=== PATIENT | female | born 1965 | race Caucasian/White ===

== ENCOUNTER 2020-01-27 09:45 | Outpatient (CLI) | payer OTHER, SELFPAY ==
--- NOTE | 2020-01-27 09:48 | MM_ITS ---
WS: [id number] BILATERAL DIGITAL SCREENING MAMMOGRAPHY WITH CAD CLINICAL INFORMATION: SCREENING HISTORY: Screening mammogram. No current complaints. COMPARISON: December 24, 2018 TECHNIQUE: Bilateral CC and MLO views. FINDINGS: The breasts are composed of heterogeneous fibroglandular density tissue, which can limit the detectio n of small underlying mass lesions. No suspicious mass, asymmetry, calcifications, or architectural d istortion. No evidence of malignancy. MM/[place] [id number] IMPRESSION: BI-RADS: 1-Negative FOLLOW UP: 1 Year Follow-up Recommend return to annual screening mammography.
== END 2020-01-27 09:46 | disposition home or self-care (01) ==
LOC: RADSHAW 09:47
PROVIDERS: Family Provider Nurse Practitioner Family; PCP Nurse Practitioner Family; Visit Provider Nurse Practitioner Family
DX: Z12.31 Encounter for screening mammogram for malignant neoplasm of breast (principal)
CPT/HCPCS: 77067

== ENCOUNTER 2020-10-09 10:14 | Emergency (ER) | payer OTHER, SELFPAY ==
[2020-10-09 10:16] VITALS: BP 206/107; PULSE 68; RESP 16; TEMP 36.6; O2SAT 97; BMI 26.6
--- NOTE | 2020-10-09 10:27 | ECG_ITS ---
[facility] Test Date: 2020-10-09 Pat Name: Shoshana Multani Department: Room: Gender: Female Rn Case Manager: : 1965 Requested By: Yung Moise Order Number: [id number] Toro MD: DAWSON CONTRERAS Measurements Intervals [place] Rate: 54 P: 47 IA: 206 QRS: 41 QRSD: 96 T: 41 QT: 468 QTc: 444 Interpretive Statements SINUS BRADYCARDIA Compared to ECG 03/11/2018 10:22:17 Sinus rhythm no longer present Electronically Signed On 10-09-2020 18:02:43 LINEN GRADER by DAWSON CONTRERAS [email or web address]
--- NOTE | 2020-10-09 10:27 | XRR_ITS ---
PROCEDURE INFORMATION: Exam: XR Chest, 1 View Exam date and time: 10/09/2020 10:30 AM Age: 55 years old Clinical indication: Other: High blood pressure; Additional info: HTN TECHNIQUE: Imaging protocol: XR of the chest Views: 1 view. COMPARISON: CR Chest 1 [place] [id number] 12/14/2015 7:04 PM FINDINGS: Lungs: Unremarkable. No consolidation. Pleural space: Unremarkable. No pleural effusion. No pneumothorax. Heart/Mediastinum: Unremarkable. No cardiomegaly. Bones/joints: Unremarkable. XR/XR chest 1V portable [id number] IMPRESSION: No acute findings.
--- NOTE | 2020-10-09 10:29 | ED_ITS ---
HPI - General Adult General: Chief complaint: General Medical Stated complaint: High Bp Time Seen by Provider: 10/09/20 10:19 History of Present Illness: HPI narrative: Patient complains of increasing hypertension over the last week or 2. Patient has a history of hypertension for years. Recently had bariatric surgery done [place] back in July and blood pressure has been doing pretty good until recently. Patient denies any chest pressure shortness of breath chest pains or other related illnesses. Says clonidine does not seem to be working as well for her blood pressure on a as needed basis and she has tried her olmesartan twice a day without much success either. MD complaint: Hypertension Onset (ago): week(s) Associated symptoms: Reports no associated symptoms; Deny chest pain, dyspnea, headache(s), nausea, rash or vomiting Review of Systems Const: Denies: fever(s), chills or body aches Eyes: Denies: change in vision or blurry vision ENMT: Denies: throat pain or nasal congestion Card: Reports: other (Elevated blood pressure); Denies: chest pain or dyspnea on exertion Resp: Denies: dyspnea, productive cough or non-productive cough GI: Denies: abdominal pain, nausea or vomiting Musc: Denies: extremity pain Skin/Breast: Denies: rash Neuro: Denies: headache(s) Psych: Denies: anxiety or depression Kd/Lymph: Denies: easy bruising PFSH ED PFSH: Social History (Updated 01/24/20 @ 13:57 by Francheska Garcia LPN) Smoking and tobacco status: never smoked Physical Exam Const: COMMON NORMALS: no acute distress, average body habitus and patient oriented x3 HENMT: COMMON NORMALS: normocephalic HEAD & SCALP: normal to inspection and normocephalic FACE & SINUS: normal facial exam Eye: COMMON NORMALS: conjunctivae normal GENERAL EYE: appearance normal, both eyes and all related structures CONJUNCTIVA: Yes conjunctivae normal Neck/C-Spine: COMMON NORMALS: no JVD Chest: COMMONS NORMALS: normal inspection of the chest Resp: COMMON NORMALS: normal respiratory effort and clear to auscultation bilaterally AUSCULTATION: clear to auscultation bilaterally Cardio: COMMON NORMALS: no JVD, regular rate and regular rhythm RATE: regular rate RHYTHM: regular rhythm GI: COMMON NORMALS: Normal to inspection, nondistended, normoactive bowel sounds present Extremity: COMMON NORMALS: normal to inspection and full ROM Neuro: COMMON NORMALS: patient oriented x3 Course Vital Signs: Vital signs: Vital Signs Temperature 97.9 F 10/09/20 10:16 Pulse Rate 56 L 10/09/20 12:05 Respiratory Rate 14 10/09/20 12:05 Blood Pressure 124/73 10/09/20 12:05 Pulse Oximetry 97 10/09/20 12:05 [facility] - General Adult Lab Data: Labs: Lab Results 10/09/20 10/09/20 10/09/20 Range/Units 10:40 10:40 10:55 WBC 5.4 (4.0-10.0) 10^3/ uL RBC 4.63 (4.1-5.3) 10^6/u L Hgb 13.4 (11.5-15.3) g/dL Hct 41.9 (37.0-47.0) % MCV 90.5 (81-99) fL MCH 28.9 (28.0-34.0) pg MCHC 32.0 (30.0-36.0) g/dL RDW 13.3 (12.1-15.1) % Plt Count 344 (130-400) 10^3/c mm MPV 10.2 (7.4-10.4) fL Neut % (Auto) 59.4 % Lymph % (Auto) 28.6 % Mora % (Auto) 7.3 % Eos % (Auto) 3.9 % Baso % (Auto) 0.6 % Neut # (Auto) 3.18 (1.8-7.7) 10^3/u L Lymph # (Auto) 1.5 (0.8-4.8) 10^3/u L Mora # (Auto) 0.4 (0.2-0.9) 10^3/u L Eos # (Auto) 0.2 (0.0-0.8) 10^3/u L Baso # (Auto) 0.0 (0.0-0.1) 10^3/u L Nucleated RBC % (a uto) 0 % Nucleated RBCs # 0.0 /100WBC Sodium 142 (136-145) mmol/L Potassium 3.9 (3.5-5.1) mmol/L Chloride 106 (98-107) mmol/L Carbon Dioxide 25 (22-29) mmol/L Anion Gap 14.9 (5-19) BUN 11 (6-20) mg/dL Creatinine 0.8 (0.5-0.9) mg/dL GFR Calculation 74.2 L (90-130) mL/min Glucose 122 H (65-115) mg/dL Calculated Osmolal ity 295 (285-295) mOsm/k g Calcium 9.5 (8.5-10.5) mg/dL Total Bilirubin 0.3 (0.15-1.2) mg/dL AST 19 (0-32) U/L ALT 19 (0-33) U/L Alkaline Phosphata se 106 H (35-105) IU/L Total Protein 7.7 (6.6-8.7) g/dL Albumin 4.3 (3.5-5.2) g/dL Globulin 3.4 (1.3-4.6) g/dL Urine Color Yellow (Yellow) Urine Appearance Hazy A (CLEAR) Urine pH 5 (5-7) Ur Specific Gravit y 1.020 (1.005-1.030) Urine Protein Neg (Negative) Urine Glucose (UA) Norm (Normal) Urine Ketones Negative (Negative) Urine Blood Neg (Negative) Urine Nitrate Positive H (Negative) Urine Bilirubin 1+ H (Negative) Urine Urobilinogen 1 H (Negative) mg/dL Ur Leukocyte Caren ase Trace H (Negative) Urine RBC None (0-2) /hpf Urine WBC 25-40 H (0-5) /hpf Ur Squamous Epith Cells None (0-5) /hpf Ur Transition Epit h Cell 0-4 /hpf Amorphous Sediment Not Reportable Urine Bacteria 4+ H (NONE) /hpf Discharge Plan Discharge Patient Disposition: Home Clinical Impression: Hypertension Qualifiers: Hypertension type: essential hypertension Qualified Code(s): I10 - Essential (primary) hypertension UTI (urinary tract infection) Qualifiers: Urinary tract infection type: acute cystitis Hematuria presence: without hematuria Qualified Code(s): N30.00 - Acute cystitis without hematuria Condition: Stable Prescriptions: New Toprol XL 100 mg tablet extended release 24 hr 100 mg PO DAILY Qty: 14 RF: 0 Bactrim DS 800-160 mg tablet 1 tab PO BID 7 Days Qty: 14 RF: 0 Discontinued metoprolol succinate 25 mg tablet extended release 24 hr 12.5 mg PO BID RF: 0 No Action aspirin [Adult Aspirin Regimen] 81 mg tablet,delayed release (DR/EC) 81 mg PO DAILY RF: 0 clonidine HCl 0.1 mg tablet 0.1 mg PO DAILY PRNRF: 0 olmesartan 40 mg tablet 40 mg PO DAILY RF: 0 triamterene-hydrochlorothiazid 37.5-25 mg tablet 1 tab PO BID PRNRF: 0 citalopram 20 mg tablet 20 mg PO DAILY RF: 0 levothyroxine 150 mcg capsule 150 mcg PO .QOD RF: 0 levothyroxine 175 mcg capsule 175 mcg PO .QOD RF: 0 Discharge Orders: Discharge Order (Routine); Ordered 10/09/20 Ordered By: Yung Moise Referrals: Roseanne Vega APN [Primary Care Provider] - Discharge Diet: Usual diet Discharge Activity: Resume usual activity Patient Instructions: Urinary Tract Infection in Women (ED), Chronic Hypertension (ED) Activity Restrictions/Additional Instructions: Follow-up with medical provider as directed. Take medications as prescribed. Return to the ER or your medical provider if condition worsens. Please read and understand discharge instructions. If any questions ask please. Take Toprol-XL once a day check blood pressure twice a day Coding Level of Care Code ED [employer] Operator for Sarkis Fwtamia Exam Comprehensive
[2020-10-09 10:33] VITALS: BP 177/102
[2020-10-09] MEDS: amlodipine 10 mg Tablet PO (10:33)
[2020-10-09] MEDS: cloNIDine 0.1 mg Tablet 0.3 MG PO (10:33)
[2020-10-09 10:51] LABS: Basophils % 0.6 %; Eosinophils # 0.2 10^3/uL (0.0-0.8); Eosinophils % 3.9 %; Hematocrit 41.9 % (37.0-47.0); Hemoglobin 13.4 g/dL (11.5-15.3); Lymphocytes # 1.5 10^3/uL (0.8-4.8); Lymphocytes % 28.6 %; Mean Corpuscular Hemoglobin 28.9 pg (28.0-34.0); Mean Corpuscular Volume 90.5 fL (81-99); Mean Platelet Volume 10.2 fL (7.4-10.4); Monocytes # 0.4 10^3/uL (0.2-0.9); Monocytes % 7.3 %; Neutrophils # 3.18 10^3/uL (1.8-7.7); Neutrophils % 59.4 %; Nucleated Red Blood Cells % 0 %; Platelet Count 344 10^3/cmm (130-400); Red Blood Count 4.63 10^6/uL (4.1-5.3); Red Cell Distribution Width 13.3 % (12.1-15.1); White Blood Count 5.4 10^3/uL (4.0-10.0)
[2020-10-09 11:13] LABS: Alanine Aminotransferase 19 U/L (0-33); Albumin Level 4.3 g/dL (3.5-5.2); Alkaline Phosphatase 106 IU/L (35-105); Anion Gap 14.9 (5-19); Aspartate Amino Transferase 19 U/L (0-32); Blood Urea Nitrogen 11 mg/dL (6-20); Calcium 9.5 mg/dL (8.5-10.5); Carbon Dioxide 25 mmol/L (22-29); Chloride 106 mmol/L (98-107); Globulin 3.4 g/dL (1.3-4.6); Glomerular Filtration Rate 74.2 mL/min (90-130); Glucose 122 mg/dL (65-115); Osmolality Calculated 295 mOsm/kg (285-295); Potassium 3.9 mmol/L (3.5-5.1); Sodium 142 mmol/L (136-145); Total Bilirubin 0.3 mg/dL (0.15-1.2); Total Protein 7.7 g/dL (6.6-8.7)
[2020-10-09 11:44] LABS: Glucose Urine UA Norm (Normal); Protein Urine Neg (Negative); Urine Appearance Hazy (CLEAR); Urine Color Yellow (Yellow); pH Urine 5 (5-7)
[2020-10-09 11:45] LABS: Add Urine Culture? Yes; Add Urine Microscopic? YES; Bacteria Urine 4+ /hpf; Bilirubin Urine 1+ (Negative); Blood Urine Neg (Negative); Ketones Urine Negative (Negative); Leukocyte Esterase Urine Trace (Negative); Nitrate Urine Positive (Negative); Transitional Epi Cells Urine 0-4 /hpf; Urobilinogen Urine 1 mg/dL (Negative); WBC Urine 25-40 /hpf (0-5)
[2020-10-09 12:05] VITALS: BP 124/73; PULSE 56; RESP 14; O2SAT 97
== END 2020-10-09 12:05 | disposition home or self-care (01) ==
PROVIDERS: Emergency Provider Nurse Practitioner Family; PCP Nurse Practitioner Family
DX: I10 Essential (primary) hypertension (principal); N30.00 Acute cystitis without hematuria; Z79.82 Long term (current) use of aspirin
CPT/HCPCS: 12345; 71045; 80053; 81001; 85025; 87077; 87086; 87186; 93005; 99282; 99283

== ENCOUNTER 2020-10-12 08:46 | Emergency (ER) | payer OTHER, SELFPAY ==
[2020-10-12 08:47] VITALS: BP 159/90; PULSE 68; RESP 18; TEMP 35.9; O2SAT 96; BMI 26.6
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
[2020-10-12 09:06] VITALS: BP 154/93; PULSE 69; PULSE 73; RESP 18; O2SAT 97
[2020-10-12] MEDS: HYDROcodone-acetaminophen 5-325 mg Tablet 2 TAB PO (09:15)
--- NOTE | 2020-10-12 10:59 | DCPLANNER ---
medical territory manager was asked to schedule a follow up appointment for patient with [facility]. medical territory manager called [facility], spoke with Carley, gave clinic patients information. A follow up appointment was scheduled for Sunday, October 18, 2020 at 8:[address] Patton. medical territory manager gave patient appointment information. medical territory manager was also asked to schedule a follow up appointment with ortho. medical territory manager called the ortho clinic, spoke with Holly, gave the clinic patients information. medical territory manager was told that patients information would be printed and reviewed. Clinic will call patient with appointment information.
[2020-10-12 11:25] VITALS: BP 161/91; PULSE 47; RESP 18; TEMP 37.2; O2SAT 96
--- NOTE | 2020-10-13 09:24 | DCPLANNER ---
Patient has a follow up appointment scheduled for October at 2:[address] Pinto. Clinic will call patient with appointment information.
--- NOTE | 2020-11-12 12:55 | DCPLANNER ---
Patient had a follow up appointment scheduled for 10.18.20 with [facility] - patient did attend appointment Patient had a follow up appointment scheduled for 10.14.20 with ortho - patient did attend appointment
== END 2020-10-12 11:28 | disposition home or self-care (01) ==
PROVIDERS: Emergency Provider Nurse Practitioner Family; PCP Nurse Practitioner Family
DX: S92.422A Displaced fracture of distal phalanx of left great toe, initial encounter for closed fracture (principal); I10 Essential (primary) hypertension; Z79.82 Long term (current) use of aspirin; V99.XXXA Unspecified transport accident, initial encounter
CPT/HCPCS: 12345; 73600; 73620; 99281; 99283; E0114

== ENCOUNTER 2020-10-14 15:34 | Outpatient (CLI) | payer OTHER, SELFPAY | END 2020-10-14 15:35 | disposition home or self-care (01) | LOC: SPT 15:35 | PROVIDERS: PCP Nurse Practitioner Family; Visit Provider Orthopaedic Surgery | DX: Z46.89 Encounter for fitting and adjustment of other specified devices (principal); S82.309D Unspecified fracture of lower end of unspecified tibia, subsequent encounter for closed fracture with routine healing; S82.839D Other fracture of upper and lower end of unspecified fibula, subsequent encounter for closed fracture with routine healing; X58.XXXD Exposure to other specified factors, subsequent encounter | CPT/HCPCS: 97760; L4361 ==

== ENCOUNTER → 2020-11-02 11:47 | Outpatient (BNVA) | payer OTHER, SELFPAY | PROVIDERS: PCP Nurse Practitioner Family; Visit Provider Orthopaedic Surgery | DX: S82.309A Unspecified fracture of lower end of unspecified tibia, initial encounter for closed fracture (principal); S82.839A Other fracture of upper and lower end of unspecified fibula, initial encounter for closed fracture; S99.929A Unspecified injury of unspecified foot, initial encounter; S82.52XD Displaced fracture of medial malleolus of left tibia, subsequent encounter for closed fracture with routine healing | CPT/HCPCS: 73610 ==

== ENCOUNTER 2020-11-11 07:26 | Outpatient (CLI) | payer OTHER, SELFPAY ==
--- NOTE | 2020-11-11 08:00 | USCV_ITS ---
Shoshana Multani Age: 55 Gender: F : 1965 Exam Date: 11/11/2020 08:32 Ordering Phys: Angela Patton MD ([email or web address]) Technologist: Main Mccartney Exam Location: [facility] Indication: HYPERTENSION Aortic Velocity @ SMA (cm/s) 41.5 RIGHT KIDNEY LEFT KIDNEY Velocity (cm/s) Velocity (cm/s) Sys/Caldwell Sys/Caldwell Resistive Index Resistive Index 20.4 / 6.2 0.70 Proximal Renal Artery 61.1 / 13.6 0.78 20.3 / 5.7 0.72 Mid Renal Artery 53.3 / 14.5 0.73 31.4 / 9.7 0.69 Distal Renal Artery 57.3 / 14.0 0.76 50.7 / 18.8 0.63 Hilar 37.2 / 14.7 0.60 21.6 / 9.2 0.57 Upper Pole 12.1 / 5.5 0.55 26.4 / 8.4 0.68 Mid Pole 22.6 / 8.6 0.62 17.9 / 6.3 0.65 Lower Pole 24.2 / 9.4 0.61 0.80 Renal Aortic Ratio 1.47 Accleration Index (cm/sec2) 1191.0 Hilar 424.00 0 328.00 Upper Pole 149.00 282.00 Mid Pole 331.00 242.00 Lower Pole 349.00 114.2 Kidney Length (mm) 111.0 CONCLUSIONS Normal color flow Doppler, peak systolic velocities, Renal/Aortic peak systolic velocity ratio and resistive indices noted in bilateral main, segmental and interlobar renal arteries. George Wheeler MD (Electronically Signed) Final Date: 11 November 2020 18:18 S
--- NOTE | 2020-11-11 09:30 | USCV_ITS ---
Shoshana Multani Age: 55 Gender: F : 1965 Exam Date: 11/11/2020 07:46 Ordering Phys: Angela Patton MD ([email or web address]) Technologist: Maris Larios [place] [facility] [place]: HTN BP: 157 / 99 HR: 51 Rhythm: Sinus Technical Quality: Adequate MEASUREMENTS (Male / Female) Normal Values 2D ECHO LV Diastolic Diameter PLAX 3.8 cm 4.2 - 5.9 / 3.9 - 5.3 cm LV Systolic Diameter PLAX 2.1 cm LV Chamber Size 3.3 cm IVS Diastolic Thickness 1.3 cm 0.6 - 1.0 / 0.6 - 0.9 cm IVS Systolic Thickness 1.9 cm LVPW Diastolic Thickness 1.1 cm 0.6 - 1.0 / 0.6 - 0.9 cm LVPW Systolic Thickness 1.9 cm RV Chamber Size 3.4 cm LVOT Diameter 1.9 cm LV Ejection Fraction 2D Teich 76.1 % LV Ejection Fraction MOD 2C 76.0 % LV Ejection Fraction 2C AL 74.1 % LA Diameter 3.6 cm LA Width 2.8 cm LA Height 4.9 cm RA Width 3.3 cm RA Height 4.6 cm Aorta at Sinotubular Diameter 2.1 cm M-MODE LV Diastolic Diameter MM 3.9 cm 4.2 - 5.9 / 3.9 - 5.3 cm LV Systolic Diameter MM 2.2 cm LV Ejection Fraction MM Teich 75.3 % IVS Diastolic Thickness MM 2.3 cm 0.6 - 1.0 / 0.6 - 0.9 cm IVS Systolic Thickness MM 1.9 cm LVPW Diastolic Thickness MM 1.5 cm 0.6 - 1.0 / 0.6 - 0.9 cm LVPW Systolic Thickness MM 1.9 cm Aortic Annulus Diameter 2.7 cm LA Ao Ratio MM 1.4 MV E Point Septal Separation 0.2 cm DOPPLER AV Peak Velocity 160.0 cm/s LVOT Peak Velocity 111.0 cm/s AV Area Cont Eq vti 2.0 cm squared AV Area Cont Eq pk 2.0 cm squared MV Area PHT 3.3 cm squared Mitral E to A Ratio 1.0 MV E' Velocity 54.0 cm/s Mitral E to MV E' Ratio 7.0 Mitral E to LV E' Lateral Ratio 7.3 Mitral E to LV E' Septal Ratio 6.7 TR Peak Velocity 140.1 cm/s TR Peak Gradient 7.9 mmHg TR Mean Velocity 102.8 cm/s TR Mean Gradient 4.9 mmHg TR Velocity Time Integral 41.6 cm TV Peak E Velocity 63.0 cm/s Right Atrial Pressure 3.0 mmHg Pulmonary Artery Systolic Pressu 10.9 mmHg PV Peak Velocity 101.0 cm/s RV Acceleration Time 0.1 s RV Ejection Time 0.4 s RV AcT/ET 0.3 FINDINGS Left Ventricle Normal left ventricular size, systolic function and upper normal wall thickness, with no regional wall motion abnormalities. Left ventricular ejection fraction is estimated at 70 %. Normal diastolic function. Right Ventricle Normal right ventricular size and systolic function. Right ventricular systolic pressure 10.9 mmHg. Right Atrium Normal right atrial size. Inter-atrial septal deviation from left to right. No ASD or PFO by color doppler. Left Atrium Mildly increased left atrial size. Mitral Valve Mildly thickened mitral valve. No mitral valve stenosis. Mild mitral valve regurgitation. Aortic Valve Structurally normal trileaflet aortic valve. No aortic valve stenosis. No aortic valve regurgitation. Tricuspid Valve Structurally normal tricuspid valve. No tricuspid valve stenosis. Trace to mild tricuspid valve regurgitation. Pulmonic Valve Pulmonic valve not well visualized. Trace pulmonary valve regurgitation. Pericardium No pericardial effusion. Aorta Normal size aortic root and proximal ascending aorta. CONCLUSIONS 1. Normal left ventricular size, systolic function and upper normal wall thickness, with no regional wall motion abnormalities. Left ventricular ejection fraction is estimated at 70 %. Normal diastolic function. 2. Normal right ventricular size and systolic function. 3. Mildly increased left atrial size. 4. Mild mitral valve regurgitation. 5. No prior similar studies to compare. Angela Patton MD (Electronically Signed) Final Date: 13 November 2020 17:13 S
== END 2020-11-11 07:27 | disposition home or self-care (01) ==
PROVIDERS: PCP Nurse Practitioner Family; Visit Provider Internal Medicine Cardiovascular Disease
DX: I10 Essential (primary) hypertension (principal); I34.0 Nonrheumatic mitral (valve) insufficiency
CPT/HCPCS: 93306; 93975

== ENCOUNTER → 2020-11-26 18:48 | Outpatient (BNVA) | payer OTHER, SELFPAY | PROVIDERS: PCP Nurse Practitioner Family; Visit Provider Nurse Practitioner | DX: Z20.822 Contact with and (suspected) exposure to COVID-19 (principal) | CPT/HCPCS: 87635 ==

== ENCOUNTER → 2020-12-03 09:28 | Outpatient (BNVA) | payer OTHER, SELFPAY | PROVIDERS: PCP Nurse Practitioner Family; Visit Provider Orthopaedic Surgery | DX: S82.839A Other fracture of upper and lower end of unspecified fibula, initial encounter for closed fracture (principal); S82.52XA Displaced fracture of medial malleolus of left tibia, initial encounter for closed fracture | CPT/HCPCS: 73610 ==

== ENCOUNTER → 2021-01-14 09:11 | Outpatient (BNVA) | payer OTHER, SELFPAY | PROVIDERS: PCP Nurse Practitioner Family; Visit Provider Orthopaedic Surgery | DX: S82.52XD Displaced fracture of medial malleolus of left tibia, subsequent encounter for closed fracture with routine healing; X58.XXXD Exposure to other specified factors, subsequent encounter | CPT/HCPCS: 73610 ==

== ENCOUNTER 2021-03-03 14:27 | Outpatient (CLI) | payer OTHER, SELFPAY ==
--- NOTE | 2021-03-03 14:34 | MM_ITS ---
WS: [id number] BILATERAL DIGITAL SCREENING MAMMOGRAPHY WITH CAD CLINICAL INFORMATION: SCREENING HISTORY: Screening mammogram. No current complaints. COMPARISON: January 27, 2020 TECHNIQUE: Bilateral CC and MLO views. FINDINGS: The breasts are composed of heterogeneous fibroglandular density tissue, which can limit the detectio n of small underlying mass lesions. Stable asymmetric dense breast tissue upper outer breasts bilater ally. No suspicious mass, asymmetry, calcifications, or architectural distortion. No evidence of hugh gnancy. A few punctate calcifications. MM/[id number] IMPRESSION: BI-RADS: 2-Benign FOLLOW UP: 1 Year Follow-up Recommend return to annual screening mammography.
== END 2021-03-03 14:28 | disposition home or self-care (01) ==
LOC: RADSHAW 14:31
PROVIDERS: PCP Nurse Practitioner Family; Visit Provider Nurse Practitioner Family
DX: Z12.31 Encounter for screening mammogram for malignant neoplasm of breast (principal)
CPT/HCPCS: 77067

== ENCOUNTER 2021-09-02 11:04 | Outpatient (CLI) | payer OTHER, SELFPAY | END 2021-09-02 11:05 | disposition home or self-care (01) | LOC: SLEEP 11:04 | PROVIDERS: PCP Nurse Practitioner Family; Visit Provider Internal Medicine Cardiovascular Disease | DX: R00.1 Bradycardia, unspecified (principal); E03.9 Hypothyroidism, unspecified; E66.9 Obesity, unspecified; G47.10 Hypersomnia, unspecified | CPT/HCPCS: 94762 ==

== ENCOUNTER → 2021-11-17 15:24 | Outpatient (BNVA) | payer OTHER, SELFPAY | PROVIDERS: PCP Nurse Practitioner Family; Visit Provider Registered Nurse Neonatal Intensive Care | DX: Z20.822 Contact with and (suspected) exposure to COVID-19 (principal) | CPT/HCPCS: 87635 ==

== ENCOUNTER 2021-12-01 22:47 | Emergency (ER) | payer OTHER, SELFPAY ==
--- NOTE | 2021-12-01 22:49 | XRR_ITS ---
PROCEDURE INFORMATION: Exam: XR Chest Exam date and time: 12/01/2021 10:49 PM Age: 56 years old Clinical indication: Chest pressure; Prior surgery; Surgery type: Thyroidectomy; Patient HX: C/O chest pain. History of thyroid cancer. ; Additional info: Cp TECHNIQUE: Imaging protocol: XR of the chest. Views: 1 view. Total images: 1 COMPARISON: CR XR chest 1V portable [id number] 10/09/2020 10:59 AM FINDINGS: Lungs: No visible active interstitial or alveolar airspace disease. Pleural spaces: No pleural effusion. No pneumothorax. Heart/Mediastinum: Cardiac structures and configuration within normal limits. Bones/joints: Mild scoliotic curvature of the spine. Other findings: Status post thyroidectomy. XR/XR chest 1V portable [id number] IMPRESSION: Nonacute.
--- NOTE | 2021-12-01 22:50 | ECG_ITS ---
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 Measurements Intervals [place] Rate: 65 P: 58 OK: 206 QRS: 64 QRSD: 96 T: 53 QT: 418 QTc: 436 Interpretive Statements SINUS RHYTHM Compared to ECG 10/09/2020 11:16:13 Sinus bradycardia no longer present Electronically Signed On 12-03-2021 14:04:41 LENS BLANK GAUGER by Caitlyn Granados M.D. [id number]
[2021-12-01 22:58] VITALS: BP 169/88; PULSE 64; RESP 16; TEMP 36; O2SAT 99; BMI 25.0
[2021-12-01 23:29] LABS: Basophils % 0.4 %; Eosinophils # 0.2 10^3/uL (0.0-0.8); Eosinophils % 3.1 %; Hematocrit 39.1 % (37.0-47.0); Hemoglobin 12.8 g/dL (11.5-15.3); Lymphocytes # 2.7 10^3/uL (0.8-4.8); Lymphocytes % 37.9 %; Mean Corpuscular HGB Conc 32.7 g/dL (30.0-36.0); Mean Corpuscular Hemoglobin 30.9 pg (28.0-34.0); Mean Corpuscular Volume 94.4 fl (81-99); Mean Platelet Volume 9.3 fL (7.4-10.4); Monocytes # 0.6 10^3/uL (0.2-0.9); Monocytes % 8.9 %; Neutrophils # 3.49 10^3/uL (1.8-7.7); Neutrophils % 49.4 %; Nucleated Red Blood Cells % 0 %; Platelet Count 313 10^3/cmm (130-400); Red Blood Count 4.14 10^6/uL (4.1-5.3); Red Cell Distribution Width 12.2 % (12.1-15.1); White Blood Count 7.1 10^3/uL (4.0-10.0)
--- NOTE | 2021-12-01 23:29 | W.ED.CHESTPA ---
HPI - Chest Pain General: Chief Complaint: Chest Pain Stated Complaint: chest pain Time Seen by Provider: 12/01/21 22:50 Source: patient Mode of arrival: ambulatory Limitations: no limitations History of Present Illness: HPI narrative: 56-year-old female states that initially she is having some tightness in her upper back and then today started radiating into her chest. She states that today the pain has been a type pain around her chest constantly throughout the day states pain is currently a 5 out of 10 denies any worsening improving factors. She denies any shortness of breath or nausea denies any vomiting or diarrhea. Does have a history of hypertension denies any recent long trips or surgeries. Associated symptoms: Deny abdominal pain, dyspnea, fever(s), nausea or vomiting Review of Systems Const: Denies: fever(s), chills, body aches or change in appetite Eyes: Denies: blurry vision or eye discomfort ENMT: Denies: throat pain or dental pain Card: Reports: chest pain Resp: Denies: dyspnea GI: Denies: abdominal pain, nausea, vomiting or diarrhea : Denies: dysuria Musc: Reports: back pain Skin/Breast: Denies: rash Neuro: Denies: headache(s) Psych: Denies: depression Kd/Lymph: Denies: easy bruising All/Imm: Denies: urticaria PFSH ED PFSH: Medical History Hypertension Hypothyroidism Obesity Surgical History Hx of bariatric surgery Family History Other CAD (coronary artery disease) Cancer Emphysema of lung Denies family history of Diabetes Stroke Social History Smoking and tobacco status: never smoked Alcohol intake: never Physical Exam Const: COMMON NORMALS: no acute distress, patient oriented x3 and healthy appearing HENMT: COMMON NORMALS: normocephalic and atraumatic HEAD & SCALP: normocephalic and atraumatic Eye: COMMON NORMALS: Equal, round and reactive pupils present and EOMs intact bilaterally PUPIL: Yes Equal, round and reactive pupils present Neck/C-Spine: COMMON NORMALS: full ROM and supple Chest: COMMONS NORMALS: normal inspection of the chest and normal palpation of entire chest wall Resp: COMMON NORMALS: normal respiratory effort, No retractions, No use of accessory muscles and clear to auscultation bilaterally AUSCULTATION: clear to auscultation bilaterally Cardio: COMMON NORMALS: regular rate, regular rhythm and No murmurs present (Cardio) RATE: regular rate RHYTHM: regular rhythm GI: COMMON NORMALS: Normal to inspection, nondistended, normoactive bowel sounds present, Soft to palpation, non-tender and no masses PALPATION: Yes Soft to palpation Extremity: COMMON NORMALS: normal to inspection and full ROM Neuro: COMMON NORMALS: patient oriented x3, moves all extremities and no focal motor deficits Psych: COMMON NORMALS: mental status grossly normal, Normal thought process present and cooperative THOUGHT PROCESS: Normal thought process present Skin: COMMON NORMALS: no rashes or lesions noted and no wounds GENERAL SKIN EXAM: no rashes or lesions noted Course Vital Signs: Vital signs: Vital Signs Temperature 96.8 F L 12/01/21 22:58 Pulse Rate 61 12/02/21 00:41 Respiratory Rate 20 H 12/02/21 00:41 Blood Pressure 147/84 12/02/21 00:41 Pulse Oximetry 96 12/02/21 00:41 MDM - Chest Pain MDM Narrative: Medical decision making narrative: Patient presents here with chest pains atypical in nature D-dimer and troponins are negative her pain is resolved here is likely muscular no signs of acute coronary syndrome no signs of a dissection. She is to follow-up with metallurgical analyst Dr. Austin and return if worsening she understands agrees to plan. Lab Data: Labs: Lab Results 12/01/21 12/01/21 12/01/21 23:16 23:16 23:16 WBC 7.1 10^3/uL 10^3/ uL (4.0-10.0) RBC 4.14 10^6/uL 10^6 /uL (4.1-5.3) Hgb 12.8 g/dL g/dL (11.5-15.3) Hct 39.1 % % (37.0-47.0) MCV 94.4 fl fl (81-99) MCH 30.9 pg pg (28.0-34.0) MCHC 32.7 g/dL g/dL (30.0-36.0) RDW 12.2 % % (12.1-15.1) Plt Count 313 10^3/cmm 10^3 /cmm (130-400) MPV 9.3 fL fL (7.4-10.4) Neut % (Auto) 49.4 % % Lymph % (Auto) 37.9 % % [place] % (Auto) 8.9 % % Eos % (Auto) 3.1 % % Baso % (Auto) 0.4 % % Neut # (Auto) 3.49 10^3/uL 10^3 /uL (1.8-7.7) Lymph # (Auto) 2.7 10^3/uL 10^3/ uL (0.8-4.8) [place] # (Auto) 0.6 10^3/uL 10^3/ uL (0.2-0.9) Eos # (Auto) 0.2 10^3/uL 10^3/ uL (0.0-0.8) Baso # (Auto) 0.0 10^3/uL 10^3/ uL (0.0-0.1) Nucleated RBC % (a uto) 0 % % Nucleated RBCs # 0.0 /100WBC /100W BC D-Dimer Sodium 142 mmol/L mmol/L (136-145) Potassium 3.9 mmol/L mmol/L (3.5-5.1) Chloride 105 mmol/L mmol/L (98-107) Carbon Dioxide 25 mmol/L mmol/L (22-29) Anion Gap 15.9 (5-19) BUN 11 mg/dL mg/dL (6-20) Creatinine 0.5 mg/dL mg/dL (0.5-0.9) GFR Calculation 127.2 mL/min mL/m in (90-130) Glucose 137 mg/dL H mg/dL (65-115) Calculated Osmolal ity 296 mOsm/kg H mOs m/kg (285-295) Calcium 8.3 mg/dL L mg/dL (8.5-10.5) Total Bilirubin 0.2 mg/dL mg/dL (0.15-1.2) AST 22 U/L U/L (0-32) ALT 39 U/L H U/L (0-33) Alkaline Phosphata se 152 IU/L H IU/L (35-105) Troponin T Baselin e 6 ng/L ng/L (0-10) Troponin T 120 Min [place] Troponin T Total Protein 6.5 g/dL L g/dL (6.6-8.7) Albumin 4.2 g/dL g/dL (3.5-5.2) Globulin 2.3 g/dL g/dL (1.3-4.6) 12/01/21 12/02/21 23:16 01:03 WBC RBC Hgb Hct MCV MCH MCHC RDW Plt Count MPV Neut % (Auto) Lymph % (Auto) [place] % (Auto) Eos % (Auto) Baso % (Auto) Neut # (Auto) Lymph # (Auto) [place] # (Auto) Eos # (Auto) Baso # (Auto) Nucleated RBC % (a uto) Nucleated RBCs # D-Dimer 0.45 ug/mIFEU ug/ mIFEU (0-0.59) Sodium Potassium Chloride Carbon Dioxide Anion Gap BUN Creatinine GFR Calculation Glucose Calculated Osmolal ity Calcium Total Bilirubin AST ALT Alkaline Phosphata se Troponin T Baselin e Troponin T 120 Min [place] 6.00 ng/L ng/L (0-10) [place] Troponin T 0 ABS# ABS# (0-10) Total Protein Albumin Globulin Imaging Data^: CXR: Attestation: I personally reviewed and interpreted this imaging study as follows: Radiologist's impression: No acute abnormality EKG Data^: EKG 1: Attestation: I personally reviewed and interpreted this EKG as follows: EKG interpretation date: 12/01/21 EKG interpretation time: 22:55 Interpretation: nsr hr [address] or t wave abnormalities qrs 96 qtc 429 Discharge Plan Discharge Patient Disposition: Home Clinical Impression: Chest pain Qualifiers: Chest pain type: unspecified Qualified Code(s): R07.9 - Chest pain, unspecified Condition: Stable Prescriptions: No Action citalopram 20 mg tablet 20 mg PO DAILY RF: 0 levothyroxine 150 mcg capsule 150 mcg PO .QOD RF: 0 levothyroxine 175 mcg capsule 175 mcg PO .QOD RF: 0 amlodipine 5 mg tablet 7.5 mg PO DAILY Qty: 135 RF: 2 carvedilol 6.25 mg tablet See Rx Instructions .ROUTE .COMPLEX Qty: 60 RF: 11 Discharge Orders: Discharge ED (Routine); Ordered 12/02/21 Ordered By: Ronak Seo Referrals: Angela Patton MD [Physician] - Vega,ALYCIA Cronin [Primary Care Provider] - Discharge Diet: Advance as tolerated Discharge Activity: Resume usual activity Patient Instructions: Chest Pain (ED) Coding Level of Care Code ED Registered Medical Transcriptionist for Chg Fwd Exam Comprehensive
[2021-12-01] MEDS: aspirin 81 mg Chew Tablet 324 MG PO (23:37)
[2021-12-01 23:47] LABS: D Dimer 0.45 ug/mIFEU (0-0.59)
[2021-12-01 23:49] LABS: Alanine Aminotransferase 39 U/L (0-33); Albumin Level 4.2 g/dL (3.5-5.2); Alkaline Phosphatase 152 IU/L (35-105); Anion Gap 15.9 (5-19); Aspartate Amino Transferase 22 U/L (0-32); Blood Urea Nitrogen 11 mg/dL (6-20); Calcium 8.3 mg/dL (8.5-10.5); Carbon Dioxide 25 mmol/L (22-29); Chloride 105 mmol/L (98-107); Globulin 2.3 g/dL (1.3-4.6); Glomerular Filtration Rate 127.2 mL/min (90-130); Glucose 137 mg/dL (65-115); Osmolality Calculated 296 mOsm/kg (285-295); Potassium 3.9 mmol/L (3.5-5.1); Sodium 142 mmol/L (136-145); Total Bilirubin 0.2 mg/dL (0.15-1.2); Total Protein 6.5 g/dL (6.6-8.7)
[2021-12-01 23:52] LABS: Troponin(5th) Baseline 6 ng/L (0-10)
[2021-12-02 00:41] VITALS: BP 147/84; PULSE 61; RESP 20; O2SAT 96
[2021-12-02 01:34] LABS: Troponin 5 2HR Delta 0 ABS# (0-10)
[2021-12-02 02:25] VITALS: BP 127/84; PULSE 78; RESP 20; O2SAT 98
== END 2021-12-02 02:27 | disposition home or self-care (01) ==
PROVIDERS: Emergency Provider Emergency Medicine; PCP Nurse Practitioner Family
DX: R07.9 Chest pain, unspecified (principal); I10 Essential (primary) hypertension; E03.9 Hypothyroidism, unspecified; Z98.84 Bariatric surgery status; Z82.49 Family history of ischemic heart disease and other diseases of the circulatory system
CPT/HCPCS: 36415; 71045; 80053; 84484; 85025; 85378; 93005; 99283

== ENCOUNTER 2022-04-04 09:35 | Outpatient (CLI) | payer OTHER, SELFPAY ==
--- NOTE | 2022-04-04 09:42 | MM_ITS ---
WS: [id number] SCREENING DIGITAL BREAST TOMOSYNTHESIS MAMMOGRAM WITH CAD HISTORY: SCREENING COMPARISON: 03/03/2021, 01/27/2020 and 12/24/2018. Bilateral CC and MLO with tomosynthesis and synthetic mammography submitted. Computer aided detection analyzed. Breast composition: The breasts are heterogeneously dense, which may obscure small masses. There are several clusters of calcifications noted in the upper outer quadrant of the RIGHT breast which need f urther evaluation. These are very poorly visualized calcifications but some of them may extend in a d uctal distribution. The LEFT breast is negative. MM/[place] [id number] IMPRESSION: BI-RADS: 0-Incomplete: Need additional imaging evaluation FOLLOW UP: Need Additional Imaging RIGHT BREAST: Magnification views of suspicious calcification CC and MLO. True ML. Views
== END 2022-04-04 09:36 | disposition home or self-care (01) ==
LOC: RAD 09:37
PROVIDERS: PCP Nurse Practitioner Family; Visit Provider Nurse Practitioner Family
DX: Z12.31 Encounter for screening mammogram for malignant neoplasm of breast (principal)
CPT/HCPCS: 77063; 77067

== ENCOUNTER 2022-04-26 11:14 | Outpatient (CLI) | payer OTHER, SELFPAY ==
--- NOTE | 2022-04-26 11:32 | MM_ITS ---
WS: [id number] ADDITIONAL VIEWS RIGHT MAMMOGRAM WITH DIGITAL BREAST TOMOSYNTHESIS. HISTORY: CALCIFICATIONS COMPARISON: 04/04/2022, 03/03/2020, 01/27/2020 RIGHT MAMMOGRAM: Magnification views and true ML with digital breast tomosynthesis and SM. Vague calcifications persist in the upper outer quadrant of the RIGHT breast. The asymmetries resolve with additional compression views. These calcifications are very difficult to visualize and may be s kin calcifications. Some of these calcifications are lucent centered and benign. There are other garret tional calcifications which are indeterminate but difficult to identified and follow-up is recommende d. MM/[place] [id number] IMPRESSION: BI-RADS: 3-Probably Benign FOLLOW UP: 6 Month Follow-up 1. Recommend 6 month follow-up with magnification views of the RIGHT breast ca lcifications. At this time there is no focal clustered targeted for biopsy. 2. This study was submitted for interpretation on 05/04/2022 at 9:00 AM.
== END 2022-04-26 11:15 | disposition home or self-care (01) ==
LOC: RAD 11:17
PROVIDERS: PCP Nurse Practitioner Family; Visit Provider Nurse Practitioner Family
DX: R92.8 Other abnormal and inconclusive findings on diagnostic imaging of breast (principal)
CPT/HCPCS: 77061

== ENCOUNTER 2022-10-25 13:27 | Outpatient (CLI) | payer OTHER, SELFPAY ==
[2022-10-25 14:42] LABS: Thyroid Stimulating Hormone 0.02 uIU/mL (0.27-4.20)
== END 2022-10-25 13:28 | disposition home or self-care (01) ==
LOC: LAB 13:33
PROVIDERS: PCP Nurse Practitioner Family; Visit Provider Internal Medicine Interventional Cardiology
DX: Z85.850 Personal history of malignant neoplasm of thyroid (principal)
CPT/HCPCS: 84432; 84443; 86800

== ENCOUNTER 2022-11-23 10:57 | Outpatient (CLI) | payer OTHER, SELFPAY ==
--- NOTE | 2022-11-23 11:03 | MM_ITS ---
WS: [id number] DIAGNOSTIC RIGHT DIGITAL TOMOSYNTHESIS MAMMOGRAPHY WITH CAD. HISTORY: 6M FOLLOW UP CALCS COMPARISON: 04/26/2022, 04/04/2022 Technique: CC, MLO and ML views. Magnification views RIGHT MLO and cc. Breast composition: The breasts are heterogeneously dense, which may obscure small masses. No interv al change in the calcifications which are scattered in the upper outer RIGHT breast. There is no foca l cluster of calcifications for which biopsy should be targeted. No mass. MM/[place] [id number] IMPRESSION: BI-RADS: 3-Probably Benign FOLLOW UP: 6 Month Follow-up Patient to return in 6 months for annual mammogram. Additional magnification vi ews of the RIGHT breast calcifications should be performed at that time.
== END 2022-11-23 10:58 | disposition home or self-care (01) ==
PROVIDERS: PCP Nurse Practitioner Family; Visit Provider Nurse Practitioner Family
DX: R92.1 Mammographic calcification found on diagnostic imaging of breast (principal)
CPT/HCPCS: 77061; G0279

== ENCOUNTER → 2023-01-26 16:46 | Outpatient (BNVA) | payer OTHER, SELFPAY | PROVIDERS: PCP Nurse Practitioner Family; Visit Provider Registered Nurse Neonatal Intensive Care | DX: J02.9 Acute pharyngitis, unspecified (principal) | CPT/HCPCS: 87071; 87880 ==

== ENCOUNTER → 2023-02-01 08:39 | Outpatient (BNVA) | payer OTHER, SELFPAY | PROVIDERS: PCP Nurse Practitioner; Visit Provider Nurse Practitioner | DX: E03.9 Hypothyroidism, unspecified (principal) | CPT/HCPCS: 84439; 84443; 84481 ==

== ENCOUNTER → 2023-02-27 10:59 | Outpatient (BNVA) | payer OTHER, SELFPAY | PROVIDERS: PCP Nurse Practitioner; Visit Provider Nurse Practitioner | DX: R05.9 Cough, unspecified (principal) | CPT/HCPCS: 71046 ==

== ENCOUNTER → 2023-03-19 14:37 | Outpatient (BNVA) | payer OTHER, SELFPAY | PROVIDERS: PCP Nurse Practitioner; Visit Provider Nurse Practitioner Family | DX: M17.11 Unilateral primary osteoarthritis, right knee (principal); M25.561 Pain in right knee; M25.461 Effusion, right knee | CPT/HCPCS: 73562 ==

== ENCOUNTER 2023-05-29 08:54 | Outpatient (CLI) | payer OTHER, SELFPAY ==
--- NOTE | 2023-05-29 09:05 | MM_ITS ---
WS: [email or web address] VIEWS: MLO, CC, and ML views both breasts. 3D digital tomosynthesis is also included in this exam. M agnification compression spot images of the right breast are also included. Comparison made with prior exam of 12/24/2018, 01/27/2020, 03/03/2021, 04/04/2022, 11/23/2022. Findings: The breasts are heterogeneously dense which may obscure small masses. No interval change involving nu merous coarse and microcalcifications scattered throughout the upper outer quadrant of the right emma st. No discrete mass or architectural distortion noted. No suspicious findings in the left breast.. T here is skin edema identified along the inferior left breast which apparently represents inflammation or possibly a small sebaceous cyst. This does not have suspicious appearance. Recommend 6 month foll ow-up right breast only MM/[place] [id number] Impression: BI-RADS: 3-Probably Benign FOLLOW-UP: 6 Month Follow-up This mammogram was also analyzed by the Computer Aided Detection System R2 Imag e Crystal Growing Technician.
== END 2023-05-29 08:55 | disposition home or self-care (01) ==
PROVIDERS: PCP Nurse Practitioner; Visit Provider Nurse Practitioner
DX: R92.8 Other abnormal and inconclusive findings on diagnostic imaging of breast (principal)
CPT/HCPCS: 77062; G0279

== ENCOUNTER → 2023-07-25 10:42 | Outpatient (BNVA) | payer OTHER, SELFPAY | PROVIDERS: PCP Nurse Practitioner; Visit Provider Nurse Practitioner | DX: E03.9 Hypothyroidism, unspecified (principal); I10 Essential (primary) hypertension | CPT/HCPCS: 80053; 84439; 84443; 84481; 85025 ==

== ENCOUNTER → 2023-10-16 11:59 | Outpatient (BNVA) | payer OTHER, SELFPAY | PROVIDERS: PCP Nurse Practitioner; Visit Provider Nurse Practitioner | DX: K21.9 Gastro-esophageal reflux disease without esophagitis (principal) | CPT/HCPCS: 86003 ==

== ENCOUNTER 2023-10-29 11:59 | Outpatient (CLI) | payer OTHER, SELFPAY ==
[2023-10-29 13:35] LABS: Thyroid Stimulating Hormone 0.17 uIU/mL (0.27-4.20)
== END 2023-10-29 12:00 | disposition home or self-care (01) ==
LOC: LAB 12:14
PROVIDERS: PCP Nurse Practitioner; Visit Provider Internal Medicine
DX: Z85.850 Personal history of malignant neoplasm of thyroid (principal); E89.0 Postprocedural hypothyroidism
CPT/HCPCS: 36415; 84432; 84443; 86800

== ENCOUNTER 2023-12-20 13:21 | Outpatient (CLI) | payer OTHER, SELFPAY ==
--- NOTE | 2023-12-20 14:00 | MM_ITS ---
WS: [email or web address] RIGHT 3D TOMOSYNTHESIS DIGITAL MAMMOGRAPHY WITH CAD CLINICAL INFORMATION: R92.8 - Other abnormal and inconclusive findings on diagn... HISTORY: 6-month follow-up calcifications COMPARISON: 05/29/2023, 11/23/2022, 04/26/2022, 04/04/2022. TECHNIQUE: 3 views of the right breast were obtained. FINDINGS: The right breast is composed of heterogeneous fibroglandular density tissue, which can limit the dete ction of small underlying mass lesions. Stable punctate scattered calcifications in the upper outer R IGHT breast. These are similar in appearance to the prior examinations dating back to 04/04/2022. No s uspicious calcifications to target for biopsy. No other suspicious findings. Vascular calcifications. No suspicious focal mass, asymmetry, calcifications, or architectural distortion. No evidence of hugh gnancy. IMPRESSION: MM/[place] [id number] BI-RADS: 2-Benign FOLLOW UP: 1 Year Follow-up Recommend return to annual screening mammography.
== END 2023-12-20 13:22 | disposition home or self-care (01) ==
LOC: RAD 13:21
PROVIDERS: PCP Nurse Practitioner; Visit Provider Nurse Practitioner
DX: R92.8 Other abnormal and inconclusive findings on diagnostic imaging of breast (principal)
CPT/HCPCS: 77061; G0279

== ENCOUNTER → 2024-01-01 09:37 | Outpatient (BNVA) | payer SELFPAY | PROVIDERS: PCP Nurse Practitioner; Visit Provider Nurse Practitioner | DX: Z13.6 Encounter for screening for cardiovascular disorders (principal) | CPT/HCPCS: 80061; 82947; 83036 ==

== ENCOUNTER 2025-01-06 09:00 | Outpatient (CLI) | payer OTHER, SELFPAY ==
--- NOTE | 2025-01-06 09:04 | MM_ITS ---
WS: [email or web address] BILATERAL 3D TOMOSYNTHESIS DIGITAL SCREENING MAMMOGRAPHY WITH CAD CLINICAL INFORMATION: SCREENING HISTORY: Screening mammogram. No current complaints. COMPARISON: 2023 TECHNIQUE: Bilateral CC and MLO views. FINDINGS: Intact breast implants. The breasts are composed of heterogeneous fibroglandular density tissue, which can limit the detection of small underlying mass lesions. No suspicious mass, asymmetry, calcifications, or architectural distortion. No evidence of malignancy. Incidental punctate calcifications. Vascular calcification. MM/MM [facility] tomosynthesis [id number] IMPRESSION: DENSITY: The breasts are heterogeneously dense, which may obscure small masses. BI-RADS: 2 - Benign FOLLOW UP: 1 Year Follow-up Recommend return to annual screening mammography.
== END 2025-01-06 09:01 | disposition home or self-care (01) ==
PROVIDERS: PCP Nurse Practitioner; Visit Provider Nurse Practitioner
DX: Z12.31 Encounter for screening mammogram for malignant neoplasm of breast (principal); R92.333 Mammographic heterogeneous density, bilateral breasts; R92.1 Mammographic calcification found on diagnostic imaging of breast
CPT/HCPCS: 77063; 77067

== ENCOUNTER 2025-03-20 08:53 | Outpatient (CLI) | payer SELFPAY ==
[2025-03-20 10:01] LABS: Chol HDL Ratio 3.25 mg/dL (0.0-4.40); Cholesterol 185 mg/dL (0-200); HDL Cholesterol 57 mg/dL (60-100); LDL Cholesterol Calculated 104 mg/dL (50-129); LDL HDL Ratio 1.82 RATIO (0.00-3.22); Thyroid Stimulating Hormone 0.01 uIU/mL (0.27-4.20); Triglycerides 120 mg/dL (0-150)
== END 2025-03-20 08:54 | disposition home or self-care (01) ==
PROVIDERS: PCP Nurse Practitioner; Visit Provider Internal Medicine Cardiovascular Disease
DX: E78.5 Hyperlipidemia, unspecified (principal); N18.9 Chronic kidney disease, unspecified
CPT/HCPCS: 36415; 80061; 84443

== ENCOUNTER 2025-05-25 13:54 | Outpatient (CLI) | payer SELFPAY ==
--- NOTE | 2025-05-25 14:00 | CT_ITS ---
WS: [email or web address] CT HEAD TECHNIQUE: Noncontrast and contrast-enhanced CT of the head. CLINICAL INFORMATION: MENINGIOMA COMPARISON: Outside PET/CT February 2025 and outside MRI 04/28/2025 DLP: 1911.[address] scans at [facility] use at least one of these dose optimization techniques: automated exposure control; mA and/or kV adjustment per patient size (includes targeted exams where dose is matched to clinical indication); or iterative reconstruction. FINDINGS: No evidence of intracranial hemorrhage or mass effect. Moderate small vessel changes with mild parenchymal volume loss. Small vessel changes in the dilshad. No extra-axial fluid collections. Paranasal sinuses and mastoid air cells are well aerated. Mild vascular calcification. Tiny chronic lacunar infarct anterior limb LEFT internal capsule No focal mass or lesion corresponding to the prior focus of uptake on the outside PET/CT. No enhancing lesions. No other suspicious findings. CT/CT head wo/w con [id number] IMPRESSION: 1. No evidence of extra-axial mass or lesion to correspond to the findings on the prior PET/CT. 2. Moderate small vessel changes with mild parenchymal volume loss. 3. Mild vascular calcification. 4. No other acute findings.
[2025-05-25 14:26] LABS: Blood Urea Nitrogen 13 mg/dL (8-23)
[2025-05-25] MEDS: iohexol 350 mg/mL 500 mL Btl (per mL) IV (14:31)
== END 2025-05-25 13:55 | disposition home or self-care (01) ==
LOC: RAD 13:56
PROVIDERS: PCP Nurse Practitioner; Visit Provider Specialist
DX: D32.9 Benign neoplasm of meninges, unspecified (principal); I67.89 Other cerebrovascular disease; I68.0 Cerebral amyloid angiopathy; I25.84 Coronary atherosclerosis due to calcified coronary lesion
CPT/HCPCS: 70470; 82565; 84520

== ENCOUNTER → 2025-06-03 16:33 | Outpatient (BNVA) | payer SELFPAY | PROVIDERS: PCP Nurse Practitioner; Visit Provider Nurse Practitioner | DX: R39.9 Unspecified symptoms and signs involving the genitourinary system (principal) | CPT/HCPCS: 87086 ==